=== PATIENT | female | born 1950 | race Caucasian/White ===

== ENCOUNTER 2024-06-15 02:08 | Inpatient (IN) | payer OTHER ==
[2024-06-15 03:55] VITALS: BMI 19.1
[2024-06-15] MEDS ORDERED: Ondansetron PF 4 MG/2 ML Vial IVP PRN (06:17)
[2024-06-15] MEDS: Labetalol HCl 100 MG/20 ML VIAL SLOW IVP PRN (06:54)
[2024-06-15 06:57] LABS: #Basophils 0.07 10x3/uL (0.0-0.2); %Basophils 0.7 % (0.0-1.0); %Eosinophils 8.7 % (0.0-10.0); %Lymphocytes 29.9 % (21.0-51.0); %Monocytes 7.8 % (0.0-10.0); %Neutrophils 52.8 % (42.0-75.0); Hematocrit 37.8 % (36.0-47.0); Hemoglobin 12.4 g/dL (12.0-16.0); Mean Corpuscular HGB CONC 32.8 g/dL (32.0-36.0); Mean Corpuscular Hemoglobin 29.3 pg (27.0-31.0); Mean Corpuscular Volume 89.4 fL (78.0-98.0); Mean Platelet Volume 9.5 fL (7.4-10.4); Platelet Count 228 10x3/uL (130-400); RBC Distribution Width 12.6 % (11.5-14.5); Red Blood Cell (RBC) Count 4.23 mill/uL (4.20-5.40)
[2024-06-15 07:13] LABS: Anion Gap 13 mmol/L (10-20); BUN (Urea Nitrogen) 15 mg/dL (9.8-20.1); Calc. Creatinine Clearance 59 mL/min (70-130); Calcium 9.4 mg/dL (7.8-10.44); Carbon Dioxide 21 mmol/L (23-31); Chloride 113 mmol/L (98-107); Estimated GFR 87; Glucose 93 mg/dL (83-110); Potassium 3.2 mmol/L (3.5-5.1); Sodium 144 mmol/L (136-145)
[2024-06-15] MEDS ORDERED: Lidocaine 1% PF 5 ML VIAL ONE (10:47)
[2024-06-15] MEDS ORDERED: PROPOFOL 20 ML ONE (10:48)
[2024-06-15] MEDS: Aspirin 81 mg Enteric Coated Tablet PO SCH (11:51)
[2024-06-15] MEDS ORDERED: hydrALAZINE 20 MG/ML VIAL SLOW IVP PRN (16:16)
[2024-06-15] MEDS: Methocarbamol 500 MG TAB PO SCH (20:30)
[2024-06-15] MEDS: clonazePAM 1 MG TAB PO SCH (20:31)
[2024-06-15] MEDS: Potassium Chloride 20 MEQ TAB PO SCH (20:31)
[2024-06-15] MEDS: Pregabalin 50 MG CAP PO SCH (20:31)
[2024-06-15] MEDS: Atorvastatin Calcium 40 MG TAB PO SCH (20:31)
[2024-06-16 04:30] LABS: #Basophils 0.05 10x3/uL (0.0-0.2); %Basophils 0.6 % (0.0-1.0); %Eosinophils 12.6 % (0.0-10.0); %Lymphocytes 33.1 % (21.0-51.0); %Monocytes 7.5 % (0.0-10.0); Hematocrit 34.7 % (36.0-47.0); Hemoglobin 11.5 g/dL (12.0-16.0); Mean Corpuscular HGB CONC 33.1 g/dL (32.0-36.0); Mean Corpuscular Hemoglobin 29.9 pg (27.0-31.0); Mean Corpuscular Volume 90.4 fL (78.0-98.0); Mean Platelet Volume 9.8 fL (7.4-10.4); Platelet Count 222 10x3/uL (130-400); RBC Distribution Width 12.5 % (11.5-14.5); Red Blood Cell (RBC) Count 3.84 mill/uL (4.20-5.40)
[2024-06-16 05:12] LABS: Anion Gap 12 mmol/L (10-20); BUN (Urea Nitrogen) 14 mg/dL (9.8-20.1); Calc. Creatinine Clearance 67 mL/min (70-130); Calcium 9.4 mg/dL (7.8-10.44); Carbon Dioxide 19 mmol/L (23-31); Cardiac Risk 4.3 (Less than 4.5); Chloride 114 mmol/L (98-107); Cholesterol 175 mg/dl (< 200 Desired); Estimated GFR 94; Glucose 101 mg/dL (83-110); HDL Cholesterol 41 mg/dL (>60 Neg Risk); LDL Cholesterol, Calculated 114 mg/dL; Potassium 3.7 mmol/L (3.5-5.1); Sodium 141 mmol/L (136-145); Triglycerides 99 mg/dL (Less than 150)
[2024-06-16] MEDS ORDERED: Vortioxetine Hydrobromide [Trintellix] 20 MG Tablet PO SCH (09:00)
[2024-06-16] MEDS: Aspirin 81 mg Enteric Coated Tablet PO SCH (09:17)
[2024-06-16] MEDS: QUEtiapine 25 MG TAB PO SCH (09:18)
[2024-06-16 10:48] VITALS: BMI 19.1
[2024-06-16] MEDS ORDERED: clonazePAM 1 MG TAB PO PRN (14:09)
[2024-06-16] MEDS: Lactated Ringer's 1,000 ML IV SCH (15:44)
[2024-06-17 01:11] LABS: Amphetamine Not Detected (NotDetected); Barbiturates Screen Not Detected (NotDetected); Benzodiazepine Screen Not Detected (NotDetected); Cocaine Metabolite Screen Not Detected (NotDetected); Methadone Not Detected (NotDetected); Methamphetamine Not Detected (NotDetected); Opiate Screen Not Detected (NotDetected); Oxycodone Screen Not Detected (NotDetected); Phencyclidine (PCP) Not Detected (NotDetected); THC/Cannabinoid Screen Not Detected (NotDetected); Tricyclic Screen Detected (NotDetected)
[2024-06-17 04:48] LABS: #Basophils 0.09 10x3/uL (0.0-0.2); %Eosinophils 15.6 % (0.0-10.0); %Lymphocytes 33.9 % (21.0-51.0); %Monocytes 7.1 % (0.0-10.0); %Neutrophils 42.1 % (42.0-75.0); Hematocrit 32.9 % (36.0-47.0); Hemoglobin 10.6 g/dL (12.0-16.0); Mean Corpuscular HGB CONC 32.2 g/dL (32.0-36.0); Mean Corpuscular Hemoglobin 29.5 pg (27.0-31.0); Mean Corpuscular Volume 91.6 fL (78.0-98.0); Mean Platelet Volume 9.7 fL (7.4-10.4); Platelet Count 217 10x3/uL (130-400); RBC Distribution Width 12.4 % (11.5-14.5); Red Blood Cell (RBC) Count 3.59 mill/uL (4.20-5.40)
[2024-06-17 05:15] LABS: Anion Gap 12 mmol/L (10-20); BUN (Urea Nitrogen) 20 mg/dL (9.8-20.1); Calc. Creatinine Clearance 61 mL/min (70-130); Carbon Dioxide 22 mmol/L (23-31); Chloride 110 mmol/L (98-107); Estimated GFR 90; Glucose 137 mg/dL (83-110); Potassium 3.8 mmol/L (3.5-5.1); Sodium 140 mmol/L (136-145)
[2024-06-18] MEDS: Acetaminophen 325 MG TAB PO PRN (11:09)
[2024-06-18] MEDS: Amlodipine 10 MG TAB PO SCH (11:09)
[2024-06-18] MEDS: Lisinopril 20 MG TAB PO SCH (11:10)
[2024-06-18] MEDS ORDERED: traMADol HCl 50 MG TAB PO PRN (11:28)
[2024-06-18] MEDS ORDERED: Acetaminophen 500 MG TAB PO PRN (11:28)
[2024-06-18] MEDS: traMADol HCl 50 MG TAB PO SCH (13:19)
[2024-06-18] MEDS ORDERED: Carvedilol 6.25 MG TAB PO SCH ×2 (15:45→17:00)
[2024-06-18 16:02] VITALS: BP 151/66; TEMP 99
[2024-06-19] MEDS ORDERED: Amlodipine 10 MG TAB PO SCH (09:00)
[2024-06-19] MEDS ORDERED: Lisinopril 20 MG TAB PO SCH (09:00)
== END 2024-06-18 16:39 | disposition still patient (30) | DRG 64 ==
LOC: 2NO 03:53 → OBSVTOIN 17:13
PROVIDERS: ADMIT Internal Medicine; ATTEND Hospitalist
PROC: 0DC68ZZ Extirpation of Matter from Stomach, Via Natural or Artificial Opening Endoscopic (ICD-10-PCS; 2024-06-15)
PROC: 4A00X4Z Measurement of Central Nervous Electrical Activity, External Approach (ICD-10-PCS; principal; 2024-06-16)
DX: I63.9 Cerebral infarction, unspecified (principal); G93.41 Metabolic encephalopathy; E87.6 Hypokalemia; F32.A Depression, unspecified; F01.50 Vascular dementia, unspecified severity, without behavioral disturbance, psychotic disturbance, mood disturbance, and anxiety; Z91.148 Patient's other noncompliance with medication regimen for other reason; Z98.890 Other specified postprocedural states; R73.03 Prediabetes; Z79.899 Other long term (current) drug therapy; Z79.82 Long term (current) use of aspirin; T18.2XXA Foreign body in stomach, initial encounter; I25.2 Old myocardial infarction; N18.2 Chronic kidney disease, stage 2 (mild); I12.9 Hypertensive chronic kidney disease with stage 1 through stage 4 chronic kidney disease, or unspecified chronic kidney disease; E78.49 Other hyperlipidemia
CPT/HCPCS: 36415; 36416; 70551; 74018; 80048; 80061; 80306; 85025; 93306; 95700; 95711; 95957; J2704; J7120